=== PATIENT | male | born 1940 | race Caucasian/White ===

== ENCOUNTER 2016-12-09 19:28 | Emergency (ER) | payer MEDICARE, BC ==
[~2016-12-09] VITALS: Ht 177.8 cm; Wt 62.6 kg
[2016-12-09 20:41] LABS: BASOPHILS % (AUTO) 0.9 % (0.0-2.0); EOSINOPHILS % (AUTO) 0.8 % (0.0-3.0); LYMPHOCYTES % (AUTO) 8.6 % (20.0-45.0); MEAN CORPUSCULAR HEMOGLOBIN 33.3 PG (27.0-31.0); MEAN CORPUSCULAR HGB CONC 34.7 G/DL (32.0-36.0); MEAN CORPUSCULAR VOLUME 96 FL (80-99); MEAN PLATELET VOLUME 7.9 FL (6.5-10.1); MONOCYTES % (AUTO) 6.7 % (1.0-10.0); PLATELET COUNT 124 K/UL (150-450); RED BLOOD COUNT 4.37 M/UL (4.70-6.10); RED CELL DISTRIBUTION WIDTH 12.9 % (11.6-14.8); WHITE BLOOD COUNT 12.6 K/UL (4.8-10.8)
[2016-12-09 20:46] LABS: TROPONIN I < 0.30 ng/mL (<=0.30)
[2016-12-09 20:47] LABS: ALANINE AMINOTRANSFERASE 20 U/L (3-41); ALBUMIN/GLOBULIN RATIO 2.5 (1.0-2.7); ANION GAP 12 (5-15); ASPARTATE AMINO TRANSFERASE 25 U/L (5-40); CALCIUM 9.1 mg/dL (8.6-10.2); CARBON DIOXIDE 25 mEQ/L (20-30); CHLORIDE 103 mEQ/L (98-107); CREATININE 1.3 mg/dL (0.7-1.2); HEMOLYSIS 8; SODIUM 140 mEQ/L (135-145); TOTAL PROTEIN 6.1 g/dL (6.6-8.7)
[2016-12-09 20:58] LABS: CKMB 6.6 ng/mL (< 6.7)
[2016-12-09 21:01] VITALS: BP 137/69
--- NOTE | 2016-12-09 21:44 | Emergency Room Report ---
History of Present Illness General Chief Complaint: Generalized Weakness Source: Patient (Kriss Wong) Present Illness HPI 76 YO Male presents to the ED c/o Hematuria and weakness x 1 day. pt. reports visiting urologist today and being switched from indwelling urinary catheter to self catheter PRN. pt. reports at home he had sudden Urinary urge, and without needing catheter was able to urinate, and had gross hematuria. pt. reports feeling dizzy afterward. pt. reports having hx of BPH for which he normally will take Antivert for. pt. states at home he took OTC Bonine. pt. denies syncope, palpitations, CP, KOO, trauma or fall. pt. denies fevers, chills, lower extremity edema, paresthesias, imbalance, or confusion. Pt. states he had neck surgery over 6 months ago, and afterward had urinary retention as a complication , as a result he has been using an indwelling catheter until today. Denies CP, Palpitations, LOC, AMS, dizziness, Changes in Vision, Sensation, paresthesias, or a sudden severe headache. (Kriss Wong) Allergies: Coded Allergies: PENICILLINS (Verified Allergy, Unknown, 12/09/16) Patient History Past Medical History: see triage record, other - neck surgery, and urinary retention as surgical complication Past Surgical History: none Pertinent Family History: HTN Reviewed Nursing Documentation: PMH: Agreed, PSxH: Agreed (Kriss Wong) Nursing Documentation-PMH Past Medical History: No History, Except For Hx Hypertension: Yes Hx Diabetes: Yes (Kriss Wong) Review of Systems All Other Systems: negative except mentioned in HPI (Kriss Wong) Physical Exam Vital Signs Date Time Temp Pulse Resp B/P (MAP) Pulse Ox O2 Delivery O2 Flow Rate FiO2 12/09/16 19:23 97.2 76 18 112/92 96 Room Air Sp02 EP Interpretation: reviewed, normal General Appearance: no apparent distress, alert, GCS 15, non-toxic, thin Head: normocephalic, atraumatic Eyes: bilateral eye normal inspection, bilateral eye PERRL ENT: hearing grossly normal, normal pharynx, no angioedema, normal voice Neck: full range of motion, tender - midline ttp, surgical scar present, no erythema or evidence of infection, normal temperature palpated. Respiratory: lungs clear, normal breath sounds, no rhonchi, no wheezing, speaking full sentences Cardiovascular #1: regular rate, rhythm, no edema, normal capillary refill Gastrointestinal: normal bowel sounds, non tender, soft, non-distended, no guarding, no rebound Rectal: deferred Genitourinary: normal inspection, no CVA tenderness Musculoskeletal: back normal, gait/station normal, normal range of motion, non- tender Neurologic: alert, oriented x3, responsive, sensory intact, speech normal Psychiatric: judgement/insight normal, memory normal, mood/affect normal Skin: normal color, no rash, warm/dry, well hydrated Lymphatic: no adenopathy (Kriss Wong.AZac) Procedures Additional Procedure Procedure Narrative Procedure: Rosenthal insertion Indication: Urinary retention Description: Under sterile condition, insert an 16 Chinese Rosenthal without any difficulty. There was small clots of blood. Patient tolerated seizure without a problem. He felt better. (MEÑO MCCABE M.D.) Medical Decision Making PA Attestation Dr. Mccabe is my supervising Physician whom patient management has been discussed with. (Kriss Wong P.A.) Diagnostic Impression: Primary Impression: UTI (urinary tract infection) Qualified Codes: N30.01 - Acute cystitis with hematuria Additional Impressions: Hematuria Qualified Codes: R31.0 - Gross hematuria Acute urinary retention ER Course 76 YO Male presents to the ED c/o Hematuria and weakness x 1 day. pt. reports visiting urologist today and being switched from indwelling urinary catheter to self catheter PRN. pt. reports at home he had sudden Urinary urge, and without needing catheter was able to urinate, and had gross hematuria. pt. reports feeling dizzy afterward. pt. reports having hx of BPH for which he normally will take Antivert for. pt. states at home he took OTC Bonine. pt. denies syncope, palpitations, CP, KOO, trauma or fall. pt. denies fevers, chills, lower extremity edema, paresthesias, imbalance, or confusion. Pt. states he had neck surgery over 6 months ago, and afterward had urinary retention as a complication , as a result he has been using an indwelling catheter until today. Denies CP, Palpitations, LOC, AMS, dizziness, Changes in Vision, Sensation, paresthesias, or a sudden severe headache. Ddx considered but are not limited to : MS, MG, [place], CA, drug intoxication, hypovolemia, infection, rhabdomylosis, ETOH, CVA/TIA, NMS Vital signs: are WNL, pt. is afebrile H&PE are most consistent with possible UTI, will r/o cardiac hypovolemia or renal dysfunction. ORDERS: - - EK BPM NSR - no acute ST changes reviewed by Dr. Mccabe , this interpretation was scribed by CAM Wong - CXR: No consolidation, effusion, pneumothorax or acute cardiopulmonary findings per soft read in ED by Dr. Mccabe, his interpretation has been scribed by CAM Wong - CBC: elevated WBC 12.6 -CMP: elevated potassium of 5 and glucose 214 -UA: indicative of UTI, elevated WBC's, Leukocytes, presence of bacteria with 5 + Blood cell. ED INTERVENTIONS: -1L cc NS IV -d/w pt. the results of lab work, and pt. was also evaluated by Dr. Mccabe. Pt. is stable for close outpatient follow up with oral abx, and UROLOGY follow up within 3 days. DISCHARGE: At this time pt. is stable for d/c to home. Will provide printed patient care instructions, and any necessary prescriptions. Care plan and follow up instructions have been discussed with the patient prior to discharge. Labs Test 12/09/16 20:15 12/09/16 21:31 White Blood Count 12.6 K/UL (4.8-10.8) Red Blood Count 4.37 M/UL (4.70-6.10) Hemoglobin 14.5 G/DL (14.2-18.0) Hematocrit 41.9 % (42.0-52.0) Mean Corpuscular Volume 96 FL (80-99) Mean Corpuscular Hemoglobin 33.3 PG (27.0-31.0) Mean Corpuscular Hemoglobin Concent 34.7 G/DL (32.0-36.0) Red Cell Distribution Width 12.9 % (11.6-14.8) Platelet Count 124 K/UL (150-450) Mean Platelet Volume 7.9 FL (6.5-10.1) Neutrophils (%) (Auto) 83.0 % (45.0-75.0) Lymphocytes (%) (Auto) 8.6 % (20.0-45.0) Monocytes (%) (Auto) 6.7 % (1.0-10.0) Eosinophils (%) (Auto) 0.8 % (0.0-3.0) Basophils (%) (Auto) 0.9 % (0.0-2.0) Sodium Level 140 mEQ/L (135-145) Potassium Level 5.0 mEQ/L (3.4-4.9) Chloride Level 103 mEQ/L (98-107) Carbon Dioxide Level 25 mEQ/L (20-30) Anion Gap 12 (5-15) Blood Urea Nitrogen 48 mg/dL (7-23) Creatinine 1.3 mg/dL (0.7-1.2) Estimat Glomerular Filtration Rate mL/min (>60) Glucose Level 214 mg/dL (74-106) Calcium Level 9.1 mg/dL (8.6-10.2) Total Bilirubin 0.3 mg/dL (0.0-1.2) Aspartate Amino Transf (AST/SGOT) 25 U/L (5-40) Alanine Aminotransferase (ALT/SGPT) 20 U/L (3-41) Alkaline Phosphatase 54 U/L (40-129) Total Creatine Kinase 94 U/L (38-174) Creatine Kinase MB 6.6 ng/mL (< 6.7) Creatine Kinase MB Relative Index 7.0 Troponin I < 0.30 ng/mL (<=0.30) Total Protein 6.1 g/dL (6.6-8.7) Albumin 4.4 g/dL (3.5-5.2) Globulin 1.7 g/dL Albumin/Globulin Ratio 2.5 (1.0-2.7) Urine Color Pale yellow Urine Appearance Slightly cloudy Urine pH 6.5 (4.5-8.0) Urine Specific Anderson 1.010 (1.005-1.035) Urine Protein 3+ (NEGATIVE) Urine Glucose (UA) Negative (NEGATIVE) Urine Ketones 1+ (NEGATIVE) Urine Occult Blood 5+ (NEGATIVE) Urine Nitrite Negative (NEGATIVE) Urine Bilirubin Negative (NEGATIVE) Urine Urobilinogen Normal MG/DL (0.0-1.0) Urine Leukocyte Esterase 2+ (NEGATIVE) Urine RBC 20-30 /HPF (0 - 0) Urine WBC 10-15 /HPF (0 - 0) Urine Squamous Epithelial Cells None /LPF (NONE/OCC) Urine Bacteria Moderate /HPF (NONE) (Kriss Wong) ER Course I saw this patient with a PA. He presents with hematuria and urinary retention. A Rosenthal was done by me. He had about 500 mL urine output. There were some blood clots but no gross hematuria. We'll put on antibiotics. He has a urologist that he has already seen. We'll discharge home. (MEÑO MCCABE M.D.) Last Vital Signs Date Time Temp Pulse Resp B/P (MAP) Pulse Ox O2 Delivery O2 Flow Rate FiO2 12/09/16 21:01 97.2 79 18 137/69 98 Room Air (Kriss Wong) Disposition: HOME, SELF-CARE Condition: Stable Scripts Cephalexin* (KEFLEX*) 500 Mg Capsule 500 MG ORAL EVERY 12 HOURS for 7 Days, #14 CAP 0 Refills Prov: Kriss Wong 12/09/16 Referrals: NON PHYSICIAN (PCP) Patient Instructions: Urinary Tract Infection Additional Instructions: Take medications as directed. Follow up with a Primary Care Provider in 3-5 days, even if your symptoms have resolved. UROLOGY EVALUATION recommended --Please review list of primary care clinics, if you do not already have a primary care provider Return sooner to ED if new symptoms occur, or current symptoms become worse. - Please note that this Emergency Department Report was dictated using [employer] technology software, occasionally this can lead to erroneous entry secondary to interpretation by the dictation equipment. Kriss Wong Dec 09, 2016 21:44 MEÑO MCCABE M.D. Dec 12, 2016 21:09
[2016-12-09 21:46] LABS: APPEARANCE,URINE SLIGHTLY CLOUDY; KETONES,URINE 1+ (NEGATIVE); LEUKOCYTE ESTERASE ,URINE 2+ (NEGATIVE); NITRITE,URINE NEGATIVE (NEGATIVE); PH,URINE 6.5 (4.5-8.0); PROTEIN,URINE 3+ (NEGATIVE); UROBILINOGEN,URINE NORMAL MG/DL (0.0-1.0)
[2016-12-09] MEDS ORDERED: CEPHALEXIN500 MG ORAL (22:21)
[2016-12-09 22:30] LABS: BACTERIA,URINE MODERATE /HPF; RBC,URINE 20-30 /HPF (0 - 0)
[2016-12-09 22:34] VITALS: BP_SYST 134; BP_SYST 140; BP_DIAS 60; BP_DIAS 72
[2016-12-09 23:31] VITALS: BP 137/62
[2016-12-09 23:32] VITALS: BP 134/60
--- NOTE | 2016-12-10 10:20 | Diagnostic Imaging Report ---
Indication: PAIN Technique: One view of the chest Comparison: none Findings: The heart size is upper limits of normal. Lungs and pleural spaces are clear. There is thoracic scoliotic deformity. Impression: No acute process This agrees with the preliminary interpretation provided by the emergency room physician
== END 2016-12-09 23:34 | disposition home or self-care (01) ==
LOC: EDSEX 19:28 → EDBD 19:28 → EMR 19:53
DX: N30.01 Acute cystitis with hematuria (principal); R31.0 Gross hematuria; R33.9 Retention of urine, unspecified; I10 Essential (primary) hypertension; E11.9 Type 2 diabetes mellitus without complications; Z88.0 Allergy status to penicillin
CPT/HCPCS: 36415; 71010; 80053; 81003; 82550; 82553; 84484; 85025; 87086; 93005; 96360; 99284